=== PATIENT | female | born 1940 | race Caucasian/White ===

== ENCOUNTER → 2016-08-12 | Outpatient (CLI) | payer MEDICARE ==
[2016-08-12 15:47] LABS: AUTOMATED NEUTROPHIL # 2.5 TH/MM3 (1.8-7.7); BASOPHIL % 0.6 % (0.0-2.0); EOSINOPHIL # 0.1 TH/MM3 (0-0.4); EOSINOPHIL % 1.7 % (0.0-4.0); HEMATOCRIT 38.1 % (35.0-46.0); HEMO FLAGS DIFF FINAL; LYMPH % 34.5 % (9.0-44.0); LYMPHOCYTE # 1.6 TH/MM3 (1.0-4.8); MEAN CELL VOLUME 94.9 FL (80.0-100.0); MEAN CORPUSCULAR HEMOGLOBIN 30.7 PG (27.0-34.0); MEAN CORPUSCULAR HGB CONC 32.4 % (32.0-36.0); MONO % 9.8 % (0.0-8.0); NEUT % 53.4 % (16.0-70.0); PLATELET COUNT 152 TH/MM3 (150-450); RED BLOOD COUNT 4.02 MIL/MM3 (4.00-5.30); RED CELL DISTRIBUTION WIDTH 13.9 % (11.6-17.2); WHITE BLOOD COUNT 4.7 TH/MM3 (4.0-11.0)
[2016-08-12 16:02] LABS: ANION GAP 7 MEQ/L (5-15); BLOOD UREA NITROGEN 13 MG/DL (7-18); CHLORIDE 106 MEQ/L (98-107); GLOMERULAR FILTRATION RATE 74 ML/MIN (>89); POTASSIUM 4.4 MEQ/L (3.5-5.1); SODIUM (NA) 144 MEQ/L (136-145)
[2016-08-12 16:15] LABS: ALKALINE PHOSPHATASE 41 U/L (45-117); ALT (GPT) 20 U/L (10-53); AST (GOT) 17 U/L (15-37); TOTAL BILIRUBIN ADULT 0.6 MG/DL (0.2-1.0)
== END ==
LOC: PLAB 11:31
PROVIDERS: ATTEND Family Medicine
DX: R05 Cough (principal); R53.83 Other fatigue
CPT/HCPCS: 36415; 80053; 84443; 85025

== ENCOUNTER → 2016-09-01 | Outpatient (CLI) | payer MEDICARE ==
[2016-09-02 17:52] LABS: DEHYDROEPIANDROSTERONE SULFATE 4 mcg/dL (7-177)
[2016-09-04 03:52] LABS: ADRENOCORTICOTROPHIC 17 pg/mL (6-50)
== END ==
LOC: PLAB 08:08
PROVIDERS: ATTEND Family Medicine
DX: R53.81 Other malaise (principal); R42 Dizziness and giddiness
CPT/HCPCS: 36415; 80164; 82024; 82533; 82627

== ENCOUNTER → 2016-09-29 | Outpatient (CLI) | payer MEDICARE ==
[2016-09-29 13:04] LABS: HEMATOCRIT 39.1 % (35.0-46.0); MEAN CELL VOLUME 93.6 FL (80.0-100.0); MEAN CORPUSCULAR HEMOGLOBIN 30.6 PG (27.0-34.0); MEAN CORPUSCULAR HGB CONC 32.7 % (32.0-36.0); PLATELET COUNT 169 TH/MM3 (150-450); RED BLOOD COUNT 4.18 MIL/MM3 (4.00-5.30); REVIEW FLAG FINAL; WHITE BLOOD COUNT 4.6 TH/MM3 (4.0-11.0)
[2016-09-29 13:35] LABS: ALKALINE PHOSPHATASE 50 U/L (45-117); ALT (GPT) 22 U/L (10-53); ANION GAP 6 MEQ/L (5-15); AST (GOT) 23 U/L (15-37); BICARBONATE 33.1 MEQ/L (21.0-32.0); BLOOD UREA NITROGEN 19 MG/DL (7-18); CHLORIDE 103 MEQ/L (98-107); CREATINE KINASE 207 U/L (26-192); GLOMERULAR FILTRATION RATE 59 ML/MIN (>89); POTASSIUM 4.1 MEQ/L (3.5-5.1); SODIUM (NA) 142 MEQ/L (136-145); TOTAL BILIRUBIN ADULT 0.6 MG/DL (0.2-1.0)
[2016-09-29 13:53] LABS: CKMB 3.6 NG/ML (0.5-3.6)
== END ==
LOC: PLAB 10:03
PROVIDERS: ATTEND Internal Medicine Rheumatology
DX: R53.1 Weakness (principal); M35.00 Sjogren syndrome, unspecified
CPT/HCPCS: 36415; 80053; 82550; 82552; 85027; 85652; 86140

== ENCOUNTER → 2016-10-01 | Outpatient (CLI) | payer MEDICARE ==
[2016-10-01 09:56] LABS: BICARBONATE 32.6 MEQ/L (21.0-32.0); FREE T3 2.59 PG/ML (2.18-3.98); FREE T4 0.88 NG/DL (0.76-1.46); MAGNESIUM 2.3 MG/DL (1.5-2.5); POTASSIUM 3.8 MEQ/L (3.5-5.1)
[2016-10-01 10:13] LABS: MICRO ALBUMIN RANDOM URINE RAW 5.7 MG/L (0.0-30.0)
[2016-10-04 19:54] LABS: THYROGLOB ABS LESS THAN 1 IU/mL (< OR = 1)
[2016-10-04 23:52] LABS: THYROGLOBULN 8.4 ng/mL (())
[2016-10-05 12:25] LABS: INTACT PRO INSULIN 4.5 pmol/L (3-20)
[2016-10-05 13:54] LABS: IGF ZSCORE FEMALE -0.4 SD (-2.0 - +2.0); IGF ZSCORE MALE ND (()); IGF-1 GC/MS 81 ng/mL (34-245)
[2016-10-06 03:52] LABS: ADRENOCORTICOTROPHIC 15 pg/mL (6-50)
== END ==
LOC: PLAB 07:33
PROVIDERS: ATTEND Internal Medicine Endocrinology, Diabetes & Metabolism
DX: E04.9 Nontoxic goiter, unspecified (principal); E27.40 Unspecified adrenocortical insufficiency; I10 Essential (primary) hypertension; I95.9 Hypotension, unspecified; E23.6 Other disorders of pituitary gland; M81.8 Other osteoporosis without current pathological fracture
CPT/HCPCS: 36415; 80048; 82024; 82043; 82088; 82306; 82533; 82607; 82626; 82747; 83519; 83525; 83735; 83835; 83970; 84100; 84146; 84206; 84244; 84305; 84432; 84439; 84443; 84481; 84681; 85652; 86038; 86376; 86800

== ENCOUNTER → 2016-11-05 | Outpatient (CLI) | payer MEDICARE ==
[2016-11-05 13:27] LABS: RHEUMATOID FACTOR TRIGGER LESS THAN 10.0 IU/ML (0.0-14.9)
[2016-11-05 14:01] LABS: CKMB 3.8 NG/ML (0.5-3.6)
== END ==
LOC: PLAB 09:57
PROVIDERS: ATTEND Internal Medicine Interventional Cardiology
DX: R01.1 Cardiac murmur, unspecified (principal); R53.81 Other malaise; Z79.899 Other long term (current) drug therapy
CPT/HCPCS: 36415; 82550; 82552; 84443; 86038; 86430

== ENCOUNTER → 2016-11-23 | Outpatient (CLI) | payer MEDICARE ==
[2016-11-23 17:29] LABS: TOTAL PROTEIN SPE 7.3 GM/DL (6.0-7.6)
[2016-11-24 22:43] LABS: ALBUMIN SPE 4.64 GM/DL (3.50-5.00); ALPHA 1 GLOBULIN 0.21 GM/DL (0.11-0.29); ALPHA 2 GLOBULIN 0.74 GM/DL (0.22-1.00); BETA GLOBULINS (SPE) 0.69 GM/DL (0.53-1.03)
== END ==
LOC: PLAB 14:40
PROVIDERS: ATTEND Internal Medicine Rheumatology
DX: R53.81 Other malaise (principal)
CPT/HCPCS: 36415; 82550; 84165

== ENCOUNTER → 2017-01-12 | Outpatient (CLI) | payer MEDICARE ==
[2017-01-12 14:01] LABS: BICARBONATE 31.4 MEQ/L (21.0-32.0); MAGNESIUM 2.2 MG/DL (1.5-2.5); POTASSIUM 3.8 MEQ/L (3.5-5.1)
== END ==
LOC: PLAB 08:46
PROVIDERS: ATTEND Internal Medicine Endocrinology, Diabetes & Metabolism
DX: R53.83 Other fatigue (principal); E27.40 Unspecified adrenocortical insufficiency; E27.1 Primary adrenocortical insufficiency; R53.82 Chronic fatigue, unspecified
CPT/HCPCS: 36415; 80048; 82533; 83735

== ENCOUNTER → 2017-02-11 | Outpatient (CLI) | payer MEDICARE ==
[2017-02-11 10:42] LABS: BICARBONATE 30.6 MEQ/L (21.0-32.0); MAGNESIUM 2.2 MG/DL (1.5-2.5); POTASSIUM 3.7 MEQ/L (3.5-5.1)
== END ==
LOC: PLAB 02-10 12:17
PROVIDERS: ATTEND Internal Medicine Endocrinology, Diabetes & Metabolism
DX: E27.40 Unspecified adrenocortical insufficiency (principal); E23.0 Hypopituitarism; R53.82 Chronic fatigue, unspecified; R53.81 Other malaise
CPT/HCPCS: 36415; 80048; 82024; 82088; 82533; 82626; 83735; 84244

== ENCOUNTER → 2017-06-08 | Outpatient (CLI) | payer MEDICARE ==
[2017-06-08 09:54] LABS: BICARBONATE 32.8 MEQ/L (21.0-32.0); CALCIUM 8.7 MG/DL (8.5-10.1)
[2017-06-08 09:55] LABS: ALBUMIN 3.3 GM/DL (3.4-5.0); GLUCOSE,RANDOM 89 MG/DL (74-106)
[2017-06-08 09:57] LABS: ALT (GPT) 19 U/L (10-53); AST (GOT) 27 U/L (15-37); BLOOD UREA NITROGEN 17 MG/DL (7-18); CHLORIDE 105 MEQ/L (98-107); CREATININE 0.86 MG/DL (0.50-1.00); GLOMERULAR FILTRATION RATE 64 ML/MIN (>89); SODIUM (NA) 143 MEQ/L (136-145)
[2017-06-08 09:59] LABS: TOTAL BILIRUBIN ADULT 0.5 MG/DL (0.2-1.0); TOTAL PROTEIN 6.7 GM/DL (6.4-8.2)
[2017-06-08 10:00] LABS: ALKALINE PHOSPHATASE 39 U/L (45-117)
== END ==
LOC: PLAB 08:57
PROVIDERS: ATTEND Internal Medicine Endocrinology, Diabetes & Metabolism
DX: E27.40 Unspecified adrenocortical insufficiency (principal); R53.83 Other fatigue; M81.0 Age-related osteoporosis without current pathological fracture
CPT/HCPCS: 36415; 80053; 82533; 84439